=== PATIENT | female | born 1965 | race Caucasian/White ===

== ENCOUNTER 2017-09-15 09:29 | Emergency (ER) | payer OTHER ==
[~2017-09-15] VITALS: Ht 61 cm; Wt 59.0 kg
[2017-09-15] MEDS ORDERED: ONDANSETRON ODT 4 MG TAB.RAPDIS PO ONE (10:50)
[2017-09-15] MEDS ORDERED: METOPROLOL TARTRATE 5 MG/5 ML VIAL. IV ONE (10:50)
--- NOTE | 2017-09-15 11:19 | PHYS DOC ---
Past History Past Medical History: No Pertinent History Past Surgical History: Cholecystectomy, , Tonsillectomy Alcohol Use: Occasionally Drug Use: None Adult General Chief Complaint Chief Complaint: ABDOMINAL PAIN HPI HPI Patient is a 52 year old F who presents with epigastric abdominal pain with nausea vomiting and diarrhea that started this morning. She feels that her symptoms are worse with eating. She has been a little hold down fluids. She feels that her pain is intermittent. She has no other associated symptoms. She has no other exacerbating or alleviating factors. Review of Systems Review of Systems Constitutional: Denies fever or chills [] Eyes: Denies change in visual acuity, redness, or eye pain [] HENT: Denies nasal congestion or sore throat [] Respiratory: Denies cough or shortness of breath [] Cardiovascular: No additional information not addressed in HPI [] GI: Negative except history of present illness : Denies dysuria or hematuria [] Musculoskeletal: Denies back pain or joint pain [] Integument: Denies rash or skin lesions [] Neurologic: Denies headache, focal weakness or sensory changes [] Endocrine: Denies polyuria or polydipsia [] Family History Family History Noncontributory Current Medications Current Medications Current Medications Medications (Trade) Dose Ordered Sig/She Start Time Stop Time Status Last Admin Dose Admin Metoprolol Tartrate (Lopressor) 5 mg 1X ONCE 09/15/17 10:50 09/15/17 10:51 DC Ondansetron HCl (Zofran Odt) 4 mg 1X ONCE 09/15/17 10:50 09/15/17 10:51 DC 09/15/17 11:05 4 MG Allergies Allergies Allergies Coded Allergies Type Severity Reaction Last Updated Verified No Known Drug Allergies 09/15/17 No Physical Exam Physical Exam Constitutional: Well developed, well nourished, no acute distress, non-toxic appearance. [] HENT: Normocephalic, atraumatic, Eyes: EOMI, conjunctiva normal, no discharge. [] Neck: Normal range of motion, no tenderness, supple, no stridor. [] Cardiovascular:Heart rate regular rhythm, no murmur [] Lungs & Thorax: Bilateral breath sounds clear to auscultation [] Abdomen: Bowel sounds normal, soft, no masses, no pulsatile masses. [] Mild generalized tenderness with worse tenderness in the epigastric area. Skin: Warm, dry, no erythema, no rash. [] Back: No tenderness, no CVA tenderness. [] Extremities: No tenderness, no cyanosis, no clubbing, ROM intact, no edema. [] Neurologic: Alert and oriented X 3, normal motor function, normal sensory function, no focal deficits noted. [] Psychologic: Affect normal, judgement normal, mood normal. [] Current Patient Data Vital Signs Vital Signs Date Time Temp Pulse Resp B/P (MAP) Pulse Ox O2 Delivery O2 Flow Rate FiO2 09/15/17 09:35 97.7 108 22 96 Room Air EKG EKG [] Radiology/Procedures Radiology/Procedures [] Course & Med Decision Making Course & Med Decision Making Pertinent Labs and Imaging studies reviewed. (See chart for details) Moderate improvement in symptoms with Zofran. Labs and imaging were declined Dragon Disclaimer Dragon Disclaimer This chart was dictated in whole or in part using Voice Recognition software in a busy, high-work load, and often noisy Emergency Department environment. It may contain unintended and wholly unrecognized errors or omissions. Departure Departure: Impression: Primary Impression: Viral gastroenteritis Disposition: HOME, SELF-CARE Condition: STABLE Referrals: [facility] (PCP) Patient Instructions: Viral Gastroenteritis Additional Instructions: Edelmira was seen in the emergency department for nausea vomiting diarrhea and abdominal pain. No emergency medical condition was found on history or physical exam. Her symptoms are most consistent with a viral gastroenteritis. She was given nausea medication and was able to hold down fluids. She is given a prescription for nausea medication and advised to continue plenty of clear liquids. She is advised to return the emergency room if she develops new or worsening symptoms. She is advised follow-up with her primary care doctor as needed for further management. Scripts Ondansetron (ZOFRAN ODT) 4 Mg Tab.rapdis 15 TAB SL Q8HRS, #15 TAB Prov: TEZ LEVIN MD 09/15/17 TEZ LEVIN MD Sep 15, 2017 11:19
[2017-09-15] MEDS ORDERED: ONDA4TAB10 SL (11:36)
[2017-09-15 12:47] VITALS: BP 131/81
== END 2017-09-15 11:45 | disposition home or self-care (01) ==
LOC: ER 09:29
DX: A08.4 Viral intestinal infection, unspecified (principal)
CPT/HCPCS: 99283; Q0162